=== PATIENT | male | born 2000 | race Two or more races ===

== ENCOUNTER 2021-10-13 10:53 | Emergency (ER) | payer OTHER, MEDICAID ==
[~2021-10-13] VITALS: Ht 162.6 cm; Wt 64.4 kg
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
[2021-10-13] MEDS: LEVETIRACETAM (500MG) 1,000 MG in IV NS 0.9% 100 ML IV SCH ×2 (11:30→11:45)
[2021-10-13] MEDS ORDERED: IV NS 0.9% 1,000 ML IV ONE (11:30)
--- NOTE | 2021-10-13 12:44 | NUR ---
PATIENT MOTHER AT BEDSIDE
[2021-10-13 13:31] VITALS: BP 132/70
== END 2021-10-13 13:31 | disposition home or self-care (01) ==
LOC: ER 10:54
DX: G40.909 Epilepsy, unspecified, not intractable, without status epilepticus (principal); V49.49XA Driver injured in collision with other motor vehicles in traffic accident, initial encounter; Y93.89 Activity, other specified; Y92.89 Other specified places as the place of occurrence of the external cause; Y99.8 Other external cause status
CPT/HCPCS: 96365; 99284; J1953; J7030 ×2